=== PATIENT | female | born 2000 | race American Indian/Alaskan Native ===

== ENCOUNTER 2020-07-16 01:22 | Emergency (ER) | payer OTHER ==
[2020-07-16 01:38] VITALS: BP 115/81
[2020-07-16] MEDS ORDERED: ACETAMINOPHEN 325 MG TAB PO ONE (01:41)
[2020-07-16] MEDS ORDERED: IBUPROFEN 600 MG TAB PO ONE (01:41)
[2020-07-16 02:17] LABS: Bacteria,Urine 1+ /HPF (Negative); Bilirubin,Urine NEG (Negative); Blood,Urine NEG (Negative); Color,Urine Yellow (Yellow); Mucus,Urine 3+ /HPF; Protein,Urine <15 mg/dL mg/dL (Negative); Urobilinogen,Urine < 2.0 mg/dL (<2.0)
[2020-07-16 02:18] LABS: HCG Qualitative,Urine Negative (Negative)
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
== END 2020-07-16 04:00 | disposition home or self-care (01) ==
LOC: ED 01:22
DX: S00.03XA Contusion of scalp, initial encounter (principal); S00.83XA Contusion of other part of head, initial encounter; N39.0 Urinary tract infection, site not specified; J45.909 Unspecified asthma, uncomplicated; F17.200 Nicotine dependence, unspecified, uncomplicated; Z98.890 Other specified postprocedural states; Z91.012 Allergy to eggs; Z91.013 Allergy to seafood; Z79.899 Other long term (current) drug therapy; Y08.89XA Assault by other specified means, initial encounter; Y93.89 Activity, other specified; Y92.89 Other specified places as the place of occurrence of the external cause; Y99.8 Other external cause status
CPT/HCPCS: 70450; 70486; 81001; 81025; 87086; 99284